=== PATIENT | male | born 1990 | race Caucasian/White ===

== ENCOUNTER → 2018-04-16 | Outpatient (CLI) | payer OTHER | LOC: RAD 11:27 | DX: M25.522 Pain in left elbow (principal); R20.0 Anesthesia of skin ==

== ENCOUNTER 2023-07-12 08:12 | Emergency (ER) | payer OTHER ==
[~2023-07-12] VITALS: Ht 180.3 cm; Wt 129.1 kg
[2023-07-12] MEDS ORDERED: MORGIDOX 1X100100 MG PO (08:19)
[2023-07-12] MEDS ORDERED: FLONASE ALLERG9.9 ML NS (08:19)
[2023-07-12 09:15] VITALS: BP 128/70
== END 2023-07-12 09:05 | disposition home or self-care (01) ==
LOC: ED 08:12
DX: K92.0 Hematemesis (principal); J01.90 Acute sinusitis, unspecified